=== PATIENT | male | born 1980 | race Caucasian/White ===

== ENCOUNTER 2017-01-19 18:07 | Emergency (ER) | payer SELFPAY ==
[~2017-01-19] VITALS: Ht 182.9 cm; Wt 79.4 kg
[~2017-01-19 18:07] MED LIST: AZIT250T5 PO; BSP5T PO; CYCL10TA45 PO; CYCL10TA9 PO; FAMO20TA5 PO; GABA300C PO; GABA600T2 PO; HYDR-1231 PO; HYDR-3714 PO; HYDR-3720 PO; HYDR-3729 PO; HYDR-3816 PO; HYDR-757 PO; LD5PT TOP; LEVO750T24 PO; METH4TAB PO; NAPR500T PO; PRD20T PO; PRED20TA PO; PRED5TAB PO; SULF1TAB35 PO
--- OUTSIDE RECORDS SUMMARY | 2017-01-19 18:13 | XMS REPORT ---
Author Author JIMENEZ LADD [facility] eClinicalWorks Address Unknown Phone Unavailable Care Team Providers Care Professor Of Environmental Studies Name Role Phone JIMENEZ LADD Unavailable Allergies, Adverse Reactions, Alerts Substance Reaction Event Type Paroxetine HCl inability to ejaculate Drug Allergy Penicillin unknown effect, mother told him he was allergic Non Drug Allergy Problems Problem Type Condition Code Onset Dates Condition Status Assessment Herniated disc, cervical M50.20 Active Problem PNS disease G64 Active Medications Medication Code System Code Instructions Start Date End Date Status Dosage BuSpar NDC 0 10 MG Orally Twice a day October 09, 2014 1 tablet Ibuprofen [facility] [address]-47 800 MG Orally Three times a day Feb 06, 2015 Mar 08, 2015 1 tablet Cymbalta [facility] [address]-05 30 MG Orally Twice a day December 18, 2014 1 capsule (1 capsul 1 x per day x 5 days then twice daily) Medrol (Luis) [facility] [address]-53 4 MG Orally Feb 28, 2015 as directed per pack insert Lyrica [facility] [address]-00 150 MG Orally Twice a day December 18, 2014 1 capsule Procedures Procedure Coding System Code Date Office Visit, Est Pt., Level 3 CPT-4 52006 Mar 05, 2015 Vital Signs Date/Time: Mar 05, 2015 Temperature 97 F Weight 170 lbs Height 73.5 in BMI 22.12 Index Blood Pressure Diastolic 70 mmHg Blood Pressure Systolic 124 mmHg Cardiac Monitoring Heart Rate 70 bpm Results No Known Results Summary Purpose eClinicalWorks Submission
--- OUTSIDE RECORDS SUMMARY | 2017-01-19 18:13 | XMS REPORT ---
Author Author JIMENEZ LADD [facility] eClinicalWorks Address Unknown Phone Unavailable Care Team Providers Care Culturist Name Role Phone JIMENEZ LADD Unavailable Allergies No Known Allergies Problems Problem Type Condition Code Onset Dates Condition Status Problem PNS disease G64 Active Medications No Known Medications Results No Known Results Summary Purpose eClinicalWorks Submission
--- OUTSIDE RECORDS SUMMARY | 2017-01-19 18:13 | XMS REPORT ---
Author Author BRYAN MACIAS [facility] eClinicalWorks Address Unknown Phone Unavailable Care Team Providers Care Forestry Farm Laborer Name Role Phone BRYAN MACIAS CP Unavailable Allergies No Known Allergies Problems Problem Type Condition Code Onset Dates Condition Status Assessment Carpal tunnel syndrome of right wrist G56.01 Active Assessment Trigger finger M65.30 Active Problem PNS disease G64 Active Medications No Known Medications Procedures Procedure Coding System Code Date Office Visit, Est Pt., Level 3 CPT-4 52480 Mar 15, 2015 X-RAY EXAM OF WRIST CPT-4 65989 Mar 15, 2015 Vital Signs Date/Time: Mar 15, 2015 Blood Pressure Diastolic 64 mmHg Blood Pressure Systolic 110 mmHg Height 73.5 in Results Name Result Date Reference Range Unit Abnormality Flag Xray : Wrist, Right 3 views (IN HOUSE) Summary Purpose eClinicalWorks Submission
--- OUTSIDE RECORDS SUMMARY | 2017-01-19 18:13 | XMS REPORT | Continuity of Care Document ---
Author Author [employer] [facility] [employer] Address Unknown Phone Unavailable Care Team Providers Care Paint Sprayer Sandblaster Name Role Phone [employer] Unavailable Unavailable Problems Problem Status Onset Date Classification Date Reported Comments Source Asthma Active Problem 04/07/2013 [facility] Asthma without status asthmaticus (disorder) Active Problem 10/04/2013 [facility] Obesity (disorder) Active Problem 10/04/2013 1Added based on documentation of BMI=52.3. [facility] Medications Allergies, Adverse Reactions, Alerts Substance Category Reaction Severity Reaction type Status Date Reported Comments Source penicillin drug allergy Allergy Active [facility] Immunizations Results Vital Signs Vital Sign Value Date Comments Source Diastolic BP 68 mmHg 2013 [facility] Systolic BP 127 mmHg 2013 [facility] Temperature Oral 98.8 [degF] 10/03/2013 [facility] Heart Rate 85 bpm 10/03/2013 [facility] BP Site Left Arm
</br>(10/03/2013 13:56:00) <sup> </sup> 10/03/2013 [facility] Cuff Size Adult Regular Cuff
</br>(10/03/2013 13: 56:00) <sup> </sup> 10/03/2013 [facility] Encounters Procedures Plan of Care Social History Assessment and Plan Family History Value Date Source Advance Directives Order Name Results Value Date Source
--- OUTSIDE RECORDS SUMMARY | 2017-01-19 18:13 | XMS REPORT ---
Author Author JIMENEZ LADD [facility] eClinicalWorks Address Unknown Phone Unavailable Care Team Providers Care Equip Tech Name Role Phone JIMENEZ LADD Unavailable Allergies No Known Allergies Problems Problem Type Condition Code Onset Dates Condition Status Problem PNS disease G64 Active Medications No Known Medications Results No Known Results Summary Purpose eClinicalWorks Submission
--- OUTSIDE RECORDS SUMMARY | 2017-01-19 18:14 | XMS REPORT ---
Author CANDIDO Dowd [facility] eClinicalWorks Address Unknown Phone Unavailable Care Team Providers Care Barrel Rifler Broach Name Role Phone CANDIDO BERGERON Unavailable Allergies, Adverse Reactions, Alerts Substance Reaction Event Type Penicillin V Potassium mother told him he was allergic Drug Allergy Paroxetine HCl inability to ejaculate Drug Allergy Problems Problem Type Condition Code Onset Dates Condition Status Assessment Sinusitis J32.9 Active Problem PNS disease G64 Active Medications Medication Code System Code Instructions Start Date End Date Status Dosage Doxycycline Hyclate [facility] [address]-20 100 MG Orally every 12 hrs May 01, 2015 May 11, 2015 1 capsule Procedures Procedure Coding System Code Date Office Visit, Est Pt., Level 3 CPT-4 67795 May 01, 2015 Vital Signs Date/Time: May 01, 2015 Temperature 98.0 F Weight 168.8 lbs Height 73.5 in BMI 21.97 Index Blood Pressure Diastolic 68 mmHg Blood Pressure Systolic 102 mmHg Cardiac Monitoring Heart Rate 81 bpm Results No Known Results Summary Purpose eClinicalWorks Submission
--- OUTSIDE RECORDS SUMMARY | 2017-01-19 18:14 | XMS REPORT ---
Author Author MICHELLE DENISE Organization eClinicalWorks Address Unknown Phone Unavailable Care Team Providers Care Construction Supervisor/Carpenter Name Role Phone MICHELLE DNEISE CP Unavailable Allergies No Known Allergies Problems Problem Type Condition ICD-9 Code Onset Dates Condition Status Problem Shortness of breath 786.05 Active Problem Mononeuritis of unspecified site 355.9 Active Problem Painful respiration 786.52 Active Assessment Dental examination V72.2 Active Problem Asthma, unspecified, unspecified status 493.90 Active Problem Pneumonia, organism unspecified 486 Active Medications No Known Medications Procedures Procedure Coding System Code Date INTRAORL-PERIAPICAL 1 FILM 18377 CPT-4 D0220 Jan 11, 2015 EXTRAC ERUPTED TOOTH/EXPOSED ROOT CPT-4 D7140 Jan 11, 2015 LTD ORAL EVALUATION - PROBLEM FOCUS CPT-4 D0140 Jan 11, 2015 Results No Known Results Summary Purpose eClinicalWorks Submission
--- OUTSIDE RECORDS SUMMARY | 2017-01-19 18:14 | XMS REPORT ---
Author MO Mckoy Organization eClinicalWorks Address Unknown Phone Unavailable Care Team Providers Care Auto Battery Builder Name Role Phone MO MARTIN CP Unavailable Allergies, Adverse Reactions, Alerts Substance Reaction Event Type Paroxetine HCl inability to ejaculate Drug Allergy Penicillin unknown effect, mother told him he was allergic Non Drug Allergy Problems Problem Type Condition ICD-9 Code Onset Dates Condition Status Problem Shortness of breath 786.05 Active Problem Mononeuritis of unspecified site 355.9 Active Problem Painful respiration 786.52 Active Assessment Carpal tunnel syndrome of right wrist 354.0 Active Problem Asthma, unspecified, unspecified status 493.90 Active Problem Pneumonia, organism unspecified 486 Active Medications Medication Code System Code Instructions Start Date End Date Status Dosage Ibuprofen [facility] [address]-50 800 MG Orally Three times a day Feb 06, 2015 Mar 08, 2015 1 tablet Cymbalta [facility] [address]-34 30 MG Orally Twice a day December 18, 2014 1 capsule (1 capsul 1 x per day x 5 days then twice daily) BuSpar NDC 0 10 MG Orally Twice a day October 09, 2014 1 tablet Lyrica [facility] [address]-33 150 MG Orally Twice a day December 18, 2014 1 capsule Procedures Procedure Coding System Code Date Office Visit, Est Pt., Level 3 CPT-4 35576 Feb 06, 2015 Vital Signs Date/Time: Feb 06, 2015 Temperature 98.4 F Weight 174 lbs Height 73.5 in BMI 22.64 Index Blood Pressure Diastolic 65 mmHg Blood Pressure Systolic 125 mmHg Cardiac Monitoring Heart Rate 74 bpm Results No Known Results Summary Purpose eClinicalWorks Submission
--- OUTSIDE RECORDS SUMMARY | 2017-01-19 18:15 | XMS REPORT ---
Author Author JIMENEZ LADD [facility] eClinicalWorks Address Unknown Phone Unavailable Care Team Providers Care Script Coordinator Name Role Phone JIMENEZ LADD CP Unavailable Allergies, Adverse Reactions, Alerts Substance Reaction Event Type Penicillin V Potassium mother told him he was allergic Drug Allergy Paroxetine HCl inability to ejaculate Drug Allergy Problems Problem Type Condition Code Onset Dates Condition Status Assessment Bipolar 1 disorder F31.9 Active Assessment Herniated disc, cervical M50.20 Active Problem PNS disease G64 Active Assessment Radiculopathy of cervical region M54.12 Active Medications Medication Code System Code Instructions Start Date End Date Status Dosage [place] Carbonate [facility] [address]-33 150 MG Orally Three times a day Jun 1 capsule Procedures Procedure Coding System Code Date Office Visit, Est Pt., Level 3 CPT-4 83776 Jun 18, 2015 Vital Signs Date/Time: Jun 18, 2015 Temperature 98 F Weight 173.8 lbs Height 73.5 in BMI 22.62 Index Blood Pressure Diastolic 68 mmHg Blood Pressure Systolic 120 mmHg Cardiac Monitoring Heart Rate 80 bpm Results No Known Results Summary Purpose eClinicalWorks Submission
--- OUTSIDE RECORDS SUMMARY | 2017-01-19 18:15 | XMS REPORT ---
Author Author MICHELLE DENISE [facility] eClinicalWorks Address Unknown Phone Unavailable Care Team Providers Care Rn Clinician Name Role Phone MICHELLE DENISE CP Unavailable Allergies No Known Allergies Problems [...] Coding System Code Date INTRAORL-PERIAPICAL 1 FILM 76507 CPT-4 D0220 Jan 24, 2015 [place] COMPS - UNUSUL CIRCUMSTANCES RPT CPT-4 D9930 Jan 24, 2015 LTD ORAL EVALUATION - PROBLEM FOCUS CPT-4 D0140 Jan 24, 2015 Dental no charge CPT-4 D0099 Jan 24, 2015 Results No Known Results Summary Purpose eClinicalWorks Submission
--- OUTSIDE RECORDS SUMMARY | 2017-01-19 18:15 | XMS REPORT ---
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 Medications Medication Code System Code Instructions Start Date End Date Status Dosage BuSpar NDC 0 10 MG Orally Twice a day October 09, 2014 1 tablet Cymbalta [facility] [address]-61 30 MG Orally Twice a day December 18, 2014 1 capsule (1 capsul 1 x per day x 5 days then twice daily) Ibuprofen [facility] [address]-06 800 MG Orally Three times a day Feb 06, 2015 Mar 08, 2015 1 tablet Medrol (Luis) [facility] [address]-40 4 MG Orally Feb 28, 2015 as directed per pack insert Lyrica [facility] [address]-86 150 MG Orally Twice a day December 18, 2014 1 capsule Procedures Procedure Coding System Code Date Office Visit, Est Pt., Level 3 CPT-4 38357 Feb 28, 2015 Vital Signs Date/Time: Feb 28, 2015 Temperature 97.8 F Weight 172 lbs Height 73.5 in BMI 22.38 Index Blood Pressure Diastolic 62 mmHg Blood Pressure Systolic 124 mmHg Cardiac Monitoring Heart Rate 72 bpm Results Name Result Date Reference Range Unit Abnormality Flag MRI : Cervical w/o Contrast Summary Purpose eClinicalWorks Submission
--- OUTSIDE RECORDS SUMMARY | 2017-01-19 18:15 | XMS REPORT ---
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
--- NOTE | 2017-01-19 18:20 | ED Back Pain ---
General Stated Complaint: BACK PAIN Source of Information: Patient Exam Limitations: No Limitations History of Present Illness Time Seen by Provider: 18:18 Initial Comments To ER with midline low back pain. This began 2-3 days ago after he bent over. States that he was not lifting anything. The pain does not radiate down either leg or to his genitals. No loss of bowel or bladder control. No fevers or chills. Pain does radiate up his back occasionally. No nausea or vomiting or urinary symptoms. Location: Lumbar Spine Timing/Duration: 1-2 Days Severity: Moderate Associated Symptoms: lower back pain Allergies and Home Medications Allergies Coded Allergies: Penicillins (Unverified Allergy, Unknown, 05/28/14) Home Medications Azithromycin 250 Mg Tablet, 250 MG PO UD, #6 (Reported) TAKE 2 TABLETS ON DAY ONE THEN TAKE 1 TABLET DAILY FOR FOUR MORE DAYS Azithromycin 250 Mg Tablet, 250 MG PO DAILY, (Reported) Constitutional: see HPI, No chills, No fever EENTM: see HPI Respiratory: no symptoms reported Genitourinary: no symptoms reported Musculoskeletal: see HPI, back pain Skin: no symptoms reported Psychiatric/Neurological: No Symptoms Reported Past Tvzwuaf-Rqqlsn-Rhstpc Hx Patient Social History Former Smoker, Quit: May 01, 2012 Recent Foreign Travel: No Contact w/Someone Who Travel: No Recent Hopitalizations: Yes (WAS SE[facility] AT [facility]) Immunizations Up To Date Tetanus Booster (TDap): Less than 5yrs Date of Influenza Vaccine: May 01, 2014 Seasonal Allergies Seasonal Allergies: No Surgeries Surgeries: Lobectomy Respiratory Respiratory Disorders: Asthma, COPD Cardiovascular Cardiac Disorders: Irregular Heartbeat Neurological Neurological Disorders: Concussion Reproductive System Hx Reproductive Disorders: No Musculoskeletal Musculoskeletal Disorders: Fractures Psychosocial Behavioral Health Disorders: Anxiety, Bipolar, Depression Blood Transfusions Adverse Reaction to a Blood Tr: No Family Medical History Family Medial History: Alcoholism G8 BROTHER Completed stroke 19 FATHER 19 MOTHER Myocardial infarction 19 FATHER 19 MOTHER Physical Exam Vital Signs Vital Sign - Last 12Hours 01/19/17 18:13 Temp 98.9 Pulse 104 Resp 20 B/P (MAP) 146/93 Pulse Ox 97 O2 Delivery Room Air Capillary Refill : General Appearance: No Apparent Distress, WD/WN HEENT: PERRL/EOMI, TMs Normal Neck: Full Range of Motion, Normal Inspection Respiratory: Normal Breath Sounds, No Accessory Muscle Use, No Respiratory Distress Gastrointestinal: Normal Bowel Sounds, Non Tender, Soft Back: Normal Inspection, Vertebral Tenderness (no ecchymosis or erythema or sign of injury) Neurologic/Psychiatric: Alert, Oriented x3, No Motor/Sensory Deficits Skin: Normal Color, Warm/Dry Progress/Results/Core Measures Results/Orders My Orders Orders - NICOLE ALTAMIRANO APRN Ketorolac Injection (Toradol Injection) (01/19/17 18:30) Orphenadrine Injection (Norflex Injectio (01/19/17 18:30) Hydrocodone/Apap 5/325 Tablet (Lortab 5 (01/19/17 19:00) Medications Given in ED Current Medications Medications Dose Ordered Sig/Leena Route Start Time Stop Time Status Last Admin Dose Admin Ketorolac Tromethamine 60 mg ONCE ONCE IM 01/19/17 18:30 01/19/17 18:31 DC 01/19/17 18:30 60 MG Orphenadrine Citrate 60 mg ONCE ONCE IM 01/19/17 18:30 01/19/17 18:31 DC 01/19/17 18:32 60 MG Vital Signs/I&O Vital Sign - Last 12Hours 01/19/17 18:13 Temp 98.9 Pulse 104 Resp 20 B/P (MAP) 146/93 Pulse Ox 97 O2 Delivery Room Air Departure Impression Impression: Primary Impression: Acute low back pain Disposition: 01 HOME, SELF-CARE Condition: Stable Departure-Patient Inst. Decision time for Depature: 18:20 Referrals: [facility] (PCP/Family) Primary Care Physician Patient Instructions: Low Back Pain (DC) Add. Discharge Instructions: 1. Return to ER for any concerns 2. See your doctor next week 3. Scripts Naproxen (Naprosyn) 500 Mg Tablet 500 MG PO BID Y for PAIN-MODERATE, #30 TAB Prov: NICOLE ALTAMIRANO APRN 01/19/17 Hydrocodone/Acetaminophen ([place] 5-325 Tablet) 1 Each Tablet 1 EACH PO Q4H Y for PAIN-SEVERE TO BREAKTHROUGH, #10 TAB Prov: NICOLE ALTAMIRANO APRN 01/19/17 NICOLE ALTAMIRANO APRN Jan 19, 2017 18:20
[2017-01-19] MEDS ORDERED: ORPHENADRINE 60 MG/2 ML (NORFLEX) AMP IM ONE (18:30)
[2017-01-19] MEDS ORDERED: KETOROLAC 60 MG/2 ML VIAL IM ONE (18:30)
[2017-01-19] MEDS ORDERED: NAPR500T PO (18:57)
[2017-01-19] MEDS ORDERED: HYDR-757 PO (18:57)
[2017-01-19] MEDS ORDERED: HYDROcodone/APAP 5 MG/325 MG (LORTAB) TAB PO ONE (19:00)
[2017-01-19 19:13] VITALS: BP 146/93
== END 2017-01-19 19:13 | disposition home or self-care (01) ==
LOC: EDUNIT# 18:07 → ER 18:09
DX: M54.5 Low back pain (principal); F41.9 Anxiety disorder, unspecified; F31.9 Bipolar disorder, unspecified; J44.9 Chronic obstructive pulmonary disease, unspecified; Z90.2 Acquired absence of lung [part of]; Z87.891 Personal history of nicotine dependence; Z87.820 Personal history of traumatic brain injury; Z87.81 Personal history of (healed) traumatic fracture
CPT/HCPCS: 96372; 99284

== ENCOUNTER 2017-03-07 16:58 | Emergency (ER) | payer SELFPAY ==
[~2017-03-07] VITALS: Ht 185.4 cm; Wt 102.1 kg
--- OUTSIDE RECORDS SUMMARY | 2017-03-07 17:03 | XMS REPORT | Continuity of Care Document ---
Author Author [employer] Organization [employer] Address Unknown Phone Unavailable Care Team Providers Care Critical Care Clinical Nurse Specialist Name Role Phone [employer] Unavailable Unavailable Problems Problem Status Onset Date Classification Date Reported Comments Source Asthma Active Problem 04/07/2013 [facility] Asthma without status asthmaticus (disorder) Active Problem 10/04/2013 [facility] Obesity (disorder) Active Problem 10/04/2013 1Added based on documentation of BMI=52.3. [facility] Medications Allergies, Adverse Reactions, Alerts Substance Category Reaction Severity Reaction type Status Date Reported Comments Source penicillin drug allergy Allergy Active [facility] Immunizations Results Vital Signs Vital Sign Value Date Comments Source Diastolic BP 68 mmHg 2013 [facility] Systolic BP 127 mmHg 2013 [facility] Temperature Oral 98.8 [degF] 10/03/2013 [facility] Heart Rate 85 bpm 10/03/2013 [facility] BP Site Left Arm
</br>(10/03/2013 13:56:00) <sup> </sup> 10/03/2013 [facility] Cuff Size Adult Regular Cuff
</br>(10/03/2013 13: 56:00) <sup> </sup> 10/03/2013 [facility] Encounters Procedures Plan of Care Social History Assessment and Plan Family History Value Date Source Advance Directives Order Name Results Value Date Source
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
--- OUTSIDE RECORDS SUMMARY | 2017-03-07 17:05 | XMS REPORT ---
Author Author CHERISE MITCHELL [facility] Address [address] [place] [address] Care Team Providers Care Plastics Plater Name Role Phone CHERISE MITCHELL Unavailable PROBLEMS Type Condition ICD9-CM Code [id number] Code Onset Dates Condition Status SNOMED Code Problem PNS disease G64 Active 45297120 Problem Mononeuritis G58.9 Active 46928410 Problem S/P lobectomy of lung Z90.2 Active 317557599 Problem Herniated disc, cervical M50.20 Active 029022945 Problem Neck pain M54.2 Active 69600685 Problem Other chronic pain G89.29 Active 18042903 Problem Other chronic pain G89.29 Active 31840230 Problem Bipolar II disorder F31.81 Active 93746949 Problem PTSD (post-traumatic stress disorder) F43.10 Active 45413853 ALLERGIES Substance Reaction Event Type Date Status Penicillin V Potassium mother told him he was allergic Drug Allergy May, Active Paroxetine HCl inability to ejaculate Drug Allergy May, Active SOCIAL HISTORY No smoking Hx information available PLAN OF CARE Activity Details Follow Up 4 Weeks Reason:to establish care and FU on lung pain VITAL SIGNS Height 73.5 in 2016-05-28 Weight 157.4 lbs 2016-05-28 Temperature 98.0 degrees Fahrenheit 2016-05-28 Heart Rate 92 bpm 2016-05-28 Respiratory Rate 16 2016-05-28 Oximetry 97 % 2016-05-28 BMI 20.48 kg/m2 2016-05-28 Blood pressure systolic 108 mmHg 2016-05-28 Blood pressure diastolic 68 mmHg 2016-05-28 MEDICATIONS Medication Instructions Dosage Frequency Start Date End Date Duration Status ProAir HFA 108 (90 Base) MCG/ACT Inhalation every 4 hrs 2 puffs as needed 4h May, 0 days Active Gabapentin 300 MG Orally Three times a day 1 capsule 8h May, 30 day(s) Active RESULTS No Results PROCEDURES Procedure Date Ordered Related Diagnosis Body Site MEASURE BLOOD OXYGEN LEVEL May 28, 2016 Office Visit, Est Pt., Level 4 May 28, 2016 IMMUNIZATIONS No Known Immunizations
--- OUTSIDE RECORDS SUMMARY | 2017-03-07 17:06 | XMS REPORT ---
Author Author CHERISE MITCHELL [facility] Address [address] [place] [address] Care Team Providers Care Outcome Analyst Name Role Phone CHERISE MITCHELL Unavailable PROBLEMS Type Condition ICD9-CM Code HWV51-KK Code Onset Dates Condition Status SNOMED Code Problem S/P lobectomy of lung Z90.2 Active 507545226 Problem Other chronic pain G89.29 Active 41664584 Problem Mononeuritis G58.9 Active 14220145 Problem PNS disease G64 Active 86292787 Problem Gastroesophageal reflux disease, esophagitis presence not specified K21.9 Active 189665034 Problem Herniated disc, cervical M50.20 Active 135648938 Problem PTSD (post-traumatic stress disorder) F43.10 Active 16146501 Problem Other chronic pain G89.29 Active 86703945 Problem Neck pain M54.2 Active 19680348 Problem Bipolar II disorder F31.81 Active 93041411 ALLERGIES No Information SOCIAL HISTORY Never Assessed [...]
--- OUTSIDE RECORDS SUMMARY | 2017-03-07 17:06 | XMS REPORT ---
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 Active 628630928 Problem Other chronic pain G89.29 Active 00073380 Problem Mononeuritis G58.9 Active 61341805 Problem PNS disease G64 Active 56029304 Problem Gastroesophageal reflux disease, esophagitis presence not specified K21.9 Active 700605077 Problem Herniated disc, cervical M50.20 Active 325869537 Problem PTSD (post-traumatic stress disorder) F43.10 Active 95122783 Problem Other chronic pain G89.29 Active 59275404 Problem Neck pain M54.2 Active 18154790 Problem Bipolar II disorder F31.81 Active 79035419 ALLERGIES Substance Reaction Event Type Date Status Penicillin V Potassium mother told him he was allergic Drug Allergy Jul, Active Paroxetine HCl inability to ejaculate Drug Allergy Jul, Active SOCIAL HISTORY No smoking Hx information available PLAN OF CARE Activity Details Follow Up follow up in 3 Weeks Reason: VITAL SIGNS Height 73.5 in 2016-07-04 Weight 164.2 lbs 2016-07-04 Temperature 97.6 degrees Fahrenheit 2016-07-04 Heart Rate 58 bpm 2016-07-04 Respiratory Rate 16 2016-07-04 BMI 21.37 kg/m2 2016-07-04 Blood pressure systolic 100 mmHg 2016-07-04 Blood pressure diastolic 60 mmHg 2016-07-04 MEDICATIONS Medication Instructions Dosage Frequency Start Date End Date Duration Status Gabapentin 300 MG Orally 2 times a day 1 capsule 12h Jul, 30 day(s) Active Clindamycin HCl 300 MG Orally 2 times a day 1 capsule 12h Jul, Jul, 07 days Active RESULTS No Results PROCEDURES Procedure Date Ordered Related Diagnosis Body Site Office Visit, Est Pt., Level 3 Jul 04, 2016 IMMUNIZATIONS No Known Immunizations
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
--- OUTSIDE RECORDS SUMMARY | 2017-03-07 17:06 | XMS REPORT ---
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 Active 287492758 Problem Herniated disc, cervical M50.20 Active 886058876 Problem Neck pain M54.2 Active 52588536 Problem Other chronic pain G89.29 Active 01522501 Problem Other chronic pain G89.29 Active 32661934 Problem Bipolar II disorder F31.81 Active 44401718 Problem PTSD (post-traumatic stress disorder) F43.10 Active 98702629 ALLERGIES Substance Reaction Event Type Date Status Penicillin V Potassium mother told him he was allergic Drug Allergy Jun, Active Paroxetine HCl inability to ejaculate Drug Allergy Jun, Active SOCIAL HISTORY No smoking Hx information available PLAN OF CARE Activity Details Follow Up prn Reason:45 min/ YAZMIN/TE #30 VITAL SIGNS Blood pressure systolic 102 mmHg 2016-06-25 Blood pressure diastolic 72 mmHg 2016-06-25 MEDICATIONS Medication Instructions Dosage Frequency Start Date End Date Duration Status Clindamycin HCl 150 MG Orally every 8 hrs 1 capsule 8h 7 days Active RESULTS No Results PROCEDURES Procedure Date Ordered Related Diagnosis Body Site LTD ORAL EVALUATION - PROBLEM FOCUS Jun 25, 2016 INTRAORL-PERIAPICAL 1 FILM [id number] Jun 25, 2016 Billing Notes on claim Jun 25, 2016 BITEWING - SINGLE FILM Jun 25, 2016 IMMUNIZATIONS No Known Immunizations
[2017-03-07] MEDS ORDERED: FAMOTIDINE 20MG/2ML IV (PEPCID) IV STA (17:41)
[2017-03-07] MEDS ORDERED: ANTACID SUSP 30 ML UDC (MYLANTA) PO ONE (17:45)
[2017-03-07] MEDS ORDERED: LIDOCAINE 2% VISCOUS 15 ML UDC PO ONE (17:45)
--- NOTE | 2017-03-07 17:48 | ED General ---
General Chief Complaint: Chest Pain Stated Complaint: SOA,CP Nursing Triage Note: PT REPORTS CHEST PRESSURE X 1 WEEK. HE REPORTS HX OF ACID REFLUX. Nursing Sepsis Screen: No Definite Risk Source of Information: Patient Exam Limitations: No Limitations History of Present Illness Time Seen by Provider: 17:30 Initial Comments 36 YO MALE PATIENT PRESENTS TO THE ED WITH C/O CHEST PRESSURE INTERMITTENTLY FOR 1 WK. STATES WORSE WITH LYING DOWN AND TAKING A DEEP BREATH. DENIES WORSENED SYMPTOMS ON MOVEMENT OR WITH EATING SPICY/FATTY FOODS. PATIENT DOES HAVE A H/O CHRONIC CHEST WALL PAIN AND REFLUX. PATIENT DENIES A PREVIOUS H/O SIMILAR SYMPTOMS; HOWEVER, PATIENT HAS HAD NUMEROUS VISITS TO [facility] FOR SIMILAR COMPLAINTS OF CHRONIC CHEST WALL PAIN AND PLEURITIC PAIN. Timing/Duration: 1 Week Modifying Factors: worse with Other (worse with deep breaths and lying down) Allergies and Home Medications Allergies Coded Allergies: Penicillins (Unverified Allergy, Unknown, 05/28/14) Home Medications Azithromycin 250 Mg Tablet, 250 MG PO UD, #6 (Reported) TAKE 2 TABLETS ON DAY ONE THEN TAKE 1 TABLET DAILY FOR FOUR MORE DAYS Azithromycin 250 Mg Tablet, 250 MG PO DAILY, (Reported) Cyclobenzaprine HCl 10 Mg Tablet, 10 MG PO Q8H PRN for SPASMS, #10 Ref 0 Prescribed by: MAURILIO HUTCHINSON on 03/07/171916 Hydrocodone/Acetaminophen 1 Each Tablet, 1 EACH PO Q4H PRN for PAIN-SEVERE TO BREAKTHROUGH, #10 Prescribed by: NICOLE ALTAMIRANO on 01/19/171856 Naproxen 500 Mg Tablet, 500 MG PO BID PRN for PAIN-MODERATE, #30 Prescribed by: NICOLE ALTAMIRANO on 01/19/171856 Prednisone 20 Mg Tab, 40 MG PO DAILY, #10 Ref 0 Prescribed by: MAURILIO HUTCHINSON on 03/07/171916 Constitutional: No chills, No dizziness, No fever, No malaise, No weakness EENTM: no symptoms reported Respiratory: No cough, No orthopnea, No phlegm, No short of breath (Patient denies SOA, but states he occasionally feels like he can't catch his breath.), No stridor, No wheezing Cardiovascular: see HPI, chest pain, No edema, No palpitations, No syncope Gastrointestinal: No abdominal pain, No constipation, No diarrhea, No loss of appetite, No nausea, No vomiting Genitourinary: no symptoms reported Musculoskeletal: no symptoms reported Skin: no symptoms reported Psychiatric/Neurological: No Symptoms Reported All Other Systems Reviewed Negative Unless Noted: Yes (Negative excepted noted.) Past Kfoedpu-Gorkrm-Lbzuao Hx Patient Social History Alcohol Use: Denies Use Recreational Drug Use: No Smoking Status: Former Smoker Type Used: Cigarettes Former Smoker, Quit: May 01, 2012 2nd Hand Smoke Exposure: No Recent Foreign Travel: No Contact w/Someone Who Travel: No Recent Infectious Disease Expo: No Recent Hopitalizations: No Physical Abuse: No Sexual Abuse: No Immunizations Up To Date Tetanus Booster (TDap): Less than 5yrs Date of Influenza Vaccine: May 01, 2014 Seasonal Allergies Seasonal Allergies: No Surgeries History of Surgeries: Yes Surgeries: Lobectomy Respiratory History of Respiratory Disorde: Yes Respiratory Disorders: Asthma, COPD Cardiovascular History of Cardiac Disorders: No Cardiac Disorders: Irregular Heartbeat Neurological History of Neurological Disord: Yes (CONCUSSION WITHIN LAST 2 MONTHS) Neurological Disorders: Concussion Reproductive System Hx Reproductive Disorders: No Genitourinary History of Genitourinary Disor: No Gastrointestinal History of Gastrointestinal Di: No Musculoskeletal History of Musculoskeletal Dis: Yes Musculoskeletal Disorders: Fractures Endocrine History of Endocrine Disorders: No HEENT History of HEENT Disorders: No Cancer History of Cancer: No Psychosocial History of Psychiatric Problem: Yes Behavioral Health Disorders: Anxiety, Bipolar, Depression Suicide Risk Score: 0 Integumentary History of Skin or Integumenta: No Blood Transfusions History of Blood Disorders: No Adverse Reaction to a Blood Tr: No Reviewed Nursing Assessment Reviewed/Agree w Nursing PMH: Yes Family Medical History Significant Family History: No Pertinent Family Hx Family Medial History: Alcoholism G8 BROTHER Completed stroke 19 FATHER 19 MOTHER Myocardial infarction 19 FATHER 19 MOTHER Physical Exam Vital Signs Vital Sign - Last 12Hours 03/07/17 17:13 Temp 97.4 Pulse 73 Resp 16 B/P (MAP) 121/84 Pulse Ox 18 O2 Delivery Room Air Capillary Refill : Less Than 3 Seconds General Appearance: No Apparent Distress, WD/WN HEENT: PERRL/EOMI, Pharynx Normal Neck: Normal Inspection, Non Tender, Supple Respiratory: Lungs Clear, Normal Breath Sounds, No Accessory Muscle Use, No Respiratory Distress, Other (bilateral anteriolateral chest TTP without evidence of trauma.) Cardiovascular: Regular Rate, Rhythm, No Edema, No Murmur, Normal Peripheral Pulses Gastrointestinal: Normal Bowel Sounds, No Organomegaly, Non Tender, Soft Back: Normal Inspection Extremity: Normal Capillary Refill, No Calf Tenderness, No Pedal Edema Neurologic/Psychiatric: Alert, Oriented x3, Normal Mood/Affect Skin: Normal Color, Warm/Dry, Tattoos/Piercings Progress/Results/Core Measures Results/Orders Lab Results Laboratory Tests Test 03/07/17 18:00 Range/Units White Blood Count 7.8 4.3-11.0 10^3/uL Red Blood Count 5.00 4.35-5.85 10^6/uL Hemoglobin 15.5 13.3-17.7 G/DL Hematocrit 43 40-54 % Mean Corpuscular Volume 86 80-99 FL Mean Corpuscular Hemoglobin 31 25-34 PG Mean Corpuscular Hemoglobin Concent 36 32-36 G/DL Red Cell Distribution Width 12.1 10.0-14.5 % Platelet Count 226 130-400 10^3/uL Mean Platelet Volume 9.8 7.4-10.4 FL Neutrophils (%) (Auto) 51 42-75 % Lymphocytes (%) (Auto) 38 12-44 % Monocytes (%) (Auto) 10 0-12 % Eosinophils (%) (Auto) 1 0-10 % Basophils (%) (Auto) 0 0-10 % Neutrophils # (Auto) 4.0 1.8-7.8 X 10^3 Lymphocytes # (Auto) 3.0 1.0-4.0 X 10^3 Monocytes # (Auto) 0.7 0.0-1.0 X 10^3 Eosinophils # (Auto) 0.1 0.0-0.3 10^3/uL Basophils # (Auto) 0.0 0.0-0.1 10^3/uL D-Dimer 0.35 0.00-0.49 UG/ML Sodium Level 140 135-145 MMOL/L Potassium Level 3.9 3.6-5.0 MMOL/L Chloride Level 106 98-107 MMOL/L Carbon Dioxide Level 23 21-32 MMOL/L Anion Gap 11 5-14 MMOL/L Blood Urea Nitrogen 14 7-18 MG/DL Creatinine 1.16 0.60-1.30 MG/DL Estimat Glomerular Filtration Rate > 60 BUN/Creatinine Ratio 12 Glucose Level 92 70-105 MG/DL Calcium Level 9.6 8.5-10.1 MG/DL Magnesium Level 2.3 1.8-2.4 MG/DL Total Bilirubin 0.5 0.1-1.0 MG/DL Aspartate Amino Transf (AST/SGOT) 25 5-34 U/L Alanine Aminotransferase (ALT/SGPT) 36 0-55 U/L Alkaline Phosphatase 76 40-136 U/L Total Creatine Kinase 119 30-200 U/L Creatine Kinase MB 0.7 <6.6 NG/ML Troponin I < 0.30 <0.30 NG/ML Total Protein 7.7 6.4-8.2 GM/DL Albumin 4.4 3.2-4.5 GM/DL TSH [facility] Testing 1.92 0.35-4.94 UIU/ML My Orders Orders - MAURILIO HUTCHINSON Saline Lock/Iv-Start (03/07/17 17:41) Ekg Tracing (03/07/17 17:41) Cbc With Automated Diff (03/07/17 17:41) Comprehensive Metabolic Panel (03/07/17 17:41) Creatine Kinase (03/07/17 17:41) Creatine Kinase Mb (03/07/17 17:41) Fibrin Degradation Products (03/07/17 17:41) Magnesium (03/07/17 17:41) Thyroid Analyzer (03/07/17 17:41) Troponin I (03/07/17 17:41) Chest 1 View, Ap/Pa Only (03/07/17 17:41) Lidocaine 2% Viscous 15 Ml (Xylocaine Vi (03/07/17 17:45) Antacid Suspension (Mylanta Suspension (03/07/17 17:45) Famotidine Injection (Pepcid Injection) (03/07/17 17:41) Rx-Tramadol Hcl (Rx-Ultram) (03/07/17 19:18) Medications Given in ED Current Medications Medications Dose Ordered Sig/Leena Route Start Time Stop Time Status Last Admin Dose Admin Al Hydrox/Mg Hydrox/Simethicone 30 ml ONCE ONCE PO 03/07/17 17:45 03/07/17 17:46 DC 03/07/17 18:00 30 ML Lidocaine HCl 15 ml ONCE ONCE PO 03/07/17 17:45 03/07/17 17:46 DC 03/07/17 18:00 15 ML Vital Signs/I&O Vital Sign - Last 12Hours 03/07/17 03/07/17 03/07/17 17:13 17:13 19:23 Temp 97.4 97.4 Pulse 73 73 Resp 16 16 B/P (MAP) 121/84 Pulse Ox 18 95 O2 Delivery Room Air Room Air Room Air Blood Pressure Mean: 96 ECG Initial ECG Impression Date: Mar 07, 2017 Initial ECG Impression Time: 17:56 Initial ECG Rate: 69 Initial ECG Rhythm: Normal Sinus Initial ECG Intervals: Normal Initial ECG Impression: Normal Initial ECG Comparisson: Unchanged Comment sinus rhythm. no stemi or arrhythmia noted. ecg reviewed by dr. reddy. Diagnostic Imaging Diagonstic Imaging: Xray Plain Films/CT/US/NM/MRI: chest Comments FINDINGS: Frontal view of the chest demonstrates the lungs to be clear. The heart, mediastinum and pulmonary vascularity are normal. IMPRESSION: Negative portable chest. Dictated by: Dictated on workstation # [id number] Reviewed: Reviewed by Me (radiology report reviewed by me) Departure Communication (Admissions) Progress Notes Laboratory and diagnostic findings discussed with the patient. Patient denies changes with the GI cocktail and Pepcid. Patient continues to report increased pain with palpation of the anterior and lateral chest wall. Initially patient refused pain medication. Just prior to dismissal patient requested pain medication. Patient was given a take-home pack of tramadol. Patient instructed to follow-up with the primary care provider of his choice to establish care and for further management. Patient to call for appointment time. Return precautions were discussed with the patient as described in the discharge instructions of this report. Patient voices understanding and agrees with the treatment plan. Impression Impression: Primary Impression: Costochondritis Disposition: 01 HOME, SELF-CARE Condition: Improved Departure-Patient Inst. Decision time for Depature: 19:12 Referrals: [facility] (PCP/Family) Primary Care Physician Patient Instructions: Chest Pain (DC), Costochondritis (DC) Add. Discharge Instructions: All discharge instructions reviewed with patient and/or family. Voiced understanding. Medications as instructed. Tylenol extra strength over-the- counter as directed for pain. Ibuprofen 6 mg by mouth every 6-8 hours as needed for pain. Avoid heavy lifting, pushing, or pulling for 3-5 days, increase activity as tolerated when symptoms improve. Heating pads or packs as needed for pain. Follow-up with your primary care provider for recheck as outpatient. Return to the emergency department for worsened symptoms or any other concerns. Scripts Cyclobenzaprine HCl (Cyclobenzaprine HCl) 10 Mg Tablet 10 MG PO Q8H Y for SPASMS, #10 TAB 0 Refills Prov: MAURILIO HUTCHINSON 03/07/17 Prednisone (Prednisone) 20 Mg Tab 40 MG PO DAILY, #10 TAB 0 Refills Prov: MAURILIO HUTCHINSON 03/07/17 MAURILIO HUTCHINSON Mar 07, 2017 17:48
--- NOTE | 2017-03-07 17:59 | Diagnostic Imaging Report ---
INDICATION: Chest pressure for one week. History of acid reflux COMPARISON STUDY: Chest from 05/19/16. FINDINGS: Frontal view of the chest demonstrates the lungs to be clear. The heart, mediastinum and pulmonary vascularity are normal. IMPRESSION: Negative portable chest. Dictated by: Dictated on workstation # [id number]
[2017-03-07 18:10] LABS: BASOPHILS % (AUTO) 0 % (0-10); EOSINOPHILS # (AUTO) 0.1 10^3/uL (0.0-0.3); EOSINOPHILS % (AUTO) 1 % (0-10); LYMPHOCYTES % (AUTO) 38 % (12-44); MEAN CORPUSCULAR HEMOGLOBIN 31 PG (25-34); MEAN CORPUSCULAR HGB CONC 36 G/DL (32-36); MEAN CORPUSCULAR VOLUME 86 FL (80-99); MEAN PLATELET VOLUME 9.8 FL (7.4-10.4); MONOCYTES # (AUTO) 0.7 X 10^3 (0.0-1.0); MONOCYTES % (AUTO) 10 % (0-12); NEUTROPHILS % (AUTO) 51 % (42-75); PLATELET COUNT 226 10^3/uL (130-400); RED CELL DISTRIBUTION WIDTH 12.1 % (10.0-14.5); WHITE BLOOD COUNT 7.8 10^3/uL (4.3-11.0)
[2017-03-07 18:45] LABS: ALANINE AMINOTRANSFERASE 36 U/L (0-55); ALBUMIN 4.4 GM/DL (3.2-4.5); ANION GAP 11 MMOL/L (5-14); ASPARTATE AMINO TRANSFERASE 25 U/L (5-34); BILIRUBIN,TOTAL 0.5 MG/DL (0.1-1.0); BLOOD UREA NITROGEN 14 MG/DL (7-18); BUN/CREATININE RATIO 12; CALCIUM 9.6 MG/DL (8.5-10.1); CARBON DIOXIDE 23 MMOL/L (21-32); CHLORIDE 106 MMOL/L (98-107); CREATINE KINASE 119 U/L (30-200); CREATININE SERUM 1.16 MG/DL (0.60-1.30); GFR ESTIMATED > 60; GLUCOSE 92 MG/DL (70-105); MAGNESIUM 2.3 MG/DL (1.8-2.4); POTASSIUM 3.9 MMOL/L (3.6-5.0); SODIUM 140 MMOL/L (135-145); TOTAL PROTEIN 7.7 GM/DL (6.4-8.2)
[2017-03-07 19:04] LABS: TROPONIN I < 0.30 NG/ML (<0.30)
[2017-03-07] MEDS ORDERED: PRD20T PO (19:17)
[2017-03-07] MEDS ORDERED: CYCL10TA9 PO (19:17)
[2017-03-07] MEDS ORDERED: RX-TRAMADOL 50 MG (ULTRAM) TAB PPK#4 PO STA (19:18)
[2017-03-07 19:23] VITALS: BP 120/92
== END 2017-03-07 19:22 | disposition home or self-care (01) ==
LOC: EDUNIT# 16:58 → ER 16:59
DX: M94.0 Chondrocostal junction syndrome [Tietze] (principal); F41.9 Anxiety disorder, unspecified; F31.9 Bipolar disorder, unspecified; J44.9 Chronic obstructive pulmonary disease, unspecified; Z90.2 Acquired absence of lung [part of]; Z87.891 Personal history of nicotine dependence; Z87.81 Personal history of (healed) traumatic fracture; Z87.820 Personal history of traumatic brain injury
CPT/HCPCS: 36415; 71010; 80053; 82550; 82553; 83735; 84443; 84484; 85025; 85379; 93005; 96374

== ENCOUNTER → 2017-06-23 | Outpatient (CLI) | payer SELFPAY ==
[~2017-06-23] VITALS: Ht 185.4 cm; Wt 91.2 kg
[~2017-06-23] MED LIST changes: +AZIT250T12 PO; -AZIT250T5 PO; +CATHETER FLUSH 10 ML SYR IV PRN; +NAPR-1071 PO; -NAPR500T PO
[2017-06-23 12:58] VITALS: BP 104/80
--- NOTE | 2017-06-23 17:12 | STRESS TEST ---
DATE OF SERVICE: 06/23/2017 RESTING AND POST EXERCISE TECHNETIUM-99M TETROFOSMIN SPECT CT IMAGING ORDERING PHYSICIAN: [place] APRN PRIMARY CARE PHYSICIAN: [facility]. CLINICAL DIAGNOSIS: Chest discomfort. Baseline images were carried out after injection of 10.51 mCi technetium-99m Tetrofosmin. This was followed by exercise on a treadmill. Heart rate response to exercise was normal. Blood pressure responses to exercise was normal. After he had attained 85% of maximum predicted heart rate, 30.7 mCi of technetium-99m Tetrofosmin were injected and the exercise was continued for approximately another minute. The test was stopped on account of fatigue. He did not report chest discomfort. No significant arrhythmia was seen. He attained 88% of maximum predicted heart rate and 11.5 METS of workload. He exercised for a total of 9 minutes and 50 seconds in the Price protocol. Review of images at rest and following stress does not indicate any significant perfusion defects consistent with significant myocardial ischemia or infarction. Gated images show normal global left ventricular systolic function with normal regional wall motion. Left ventricular ejection fraction is calculated to be 60%. Left ventricular end diastolic volume is 61 mL. TID is absent (0.9). CONCLUSIONS: 1. No evidence of any significant myocardial ischemia or infarction on this study. 2. Normal regional wall motion. 3. Normal global left ventricular systolic function with a calculated ejection fraction of 60%. Job ID: [id number] DocumentID: [id number] Dictated Date: 06/23/2017 16:35:33 Supervisory Training Specialist Date: 06/23/2017 17:11:33 Dictated By: JULIO NORTH MD, MA, FACP, FACC,
== END ==
LOC: CARD 09:42
PROVIDERS: ATTEND Nurse Practitioner Family
DX: R07.9 Chest pain, unspecified (principal); R00.2 Palpitations; R06.02 Shortness of breath
CPT/HCPCS: 78452; 93017; 93225; 93226; 93306